=== PATIENT | female | born 1950 | race Caucasian/White ===

== ENCOUNTER → 2018-07-03 | Outpatient (CLI) | payer MEDICARE ==
--- NOTE | 2018-07-03 15:00 | Diagnostic Imaging Report ---
Exam: Lumbar spine complete History: Low back pain Comparison: None. Findings: There are 5 nonrib-bearing lumbar-type vertebral bodies. No acute, displaced fracture or dislocation. No pars interarticularis defects on the oblique radiographs. Mild multilevel disc space narrowing. Bilateral facet arthropathy at L4-5 and L5-S1. Atherosclerotic vascular calcifications. Sacroiliac joints are intact. Impression: No acute osseous abnormalities. Mild degenerative disc disease and degenerative facet arthropathy of the lower lumbar spine as above. Signed by: Dr. Abhijit Whitfield M.D. on 07/03/2018 2:57 PM
== END ==
LOC: RAD 13:42
PROVIDERS: ATTEND Internal Medicine Cardiovascular Disease
DX: M54.5 Low back pain (principal); M54.42 Lumbago with sciatica, left side; M25.552 Pain in left hip; M25.551 Pain in right hip
CPT/HCPCS: 72110

== ENCOUNTER → 2018-07-09 | Outpatient (CLI) | payer OTHER ==
--- NOTE | 2018-07-09 16:11 | Diagnostic Imaging Report ---
TECHNIQUE: Magnetic resonance imaging of the RIGHT HIP and MRI of the LEFT HIP were performed WITHOUT injected contrast. HISTORY: Bilateral hip pain COMPARISON: None available. FINDINGS: Bone: The bone marrow signal is heterogeneous, compatible with red marrow conversion, no specific evidence of a focal bone marrow replacing abnormality. No osteonecrosis or acute fracture. RIGHT Femoroacetabular Joint: Acetabular labrum: Mild attenuation and contour irregularity of the anterosuperior labrum. Articular Cartilage: Low-grade erosion and fibrillation of the anterior weightbearing cartilage. LEFT Femoroacetabular Joint: Acetabular labrum: Minimal attenuation contour irregularity of the anterosuperior labrum. Articular Cartilage: Minimal erosion of the anterior weightbearing cartilage. Pubic symphysis: Moderate degenerative changes. Muscle and tendons: The visualized tendons appear intact. Soft tissues: A 4.4 cm cystic focus with probable central complexity (5 image 14). IMPRESSION: 1. Mild right and minimal left degenerative changes of the hips, including mild right and minimal left degenerative tearing of the acetabular lynette. 2. Moderate osteoarthrosis of the pubic symphysis. 3. Indeterminate 4.4 cm left adnexal cyst, recommend a transabdominal and transvaginal pelvic ultrasound for further characterization. Signed by: Dr. Tj Torres D.O., M.M.M. on 07/09/2018 4:08 PM
--- NOTE | 2018-07-09 18:47 | Diagnostic Imaging Report ---
EXAMINATION: MRI of the lumbar spine without contrast HISTORY: Low back pain COMPARISON: Lumbar spine x-ray dated dated 07/03/2018 TECHNIQUE: Sagittal T1, T2, STIR; axial T2 and proton density. FINDINGS: It is assumed that there are 5 lumbar vertebrae. Curvature/Alignment: Normal lordosis. Vertebrae: No evidence of recent fracture, infection, or neoplasm. Conus: Normal, terminating at L1-L2 Cauda equina: Unremarkable. Lower thoracic: Unremarkable. Paraspinal soft tissues: Partially visualized probable intramural uterine fibroids and indeterminate cyst in the left adnexal region. Degenerative changes: L1-L2: Unremarkable. L2-L3: Unremarkable. L3-L4: Mild facet arthrosis without canal or foraminal stenosis. L4-L5: Prominent facet arthroses with grade 1 anterolisthesis. Symmetric disc bulge, marginal endplate osteophytes mainly on the left side and ligamenta flava thickening. Moderate spinal canal and mild foraminal stenosis on the left. Mild degenerative facet synovitis. L5-S1: Prominent facet arthrosis minimally on the right side, with minimal bilateral facet joint effusion and bone marrow edema, likely related to degenerative synovitis. IMPRESSION: 1. Grade 1 degenerative spondylolisthesis at L4-5. 2. Moderate degenerative spinal canal and mild left foraminal stenosis at L4-5. 3. Facet arthrosis and degenerative synovitis at L4-5 and L5-S1 as detailed above. Signed by: Dr. Christal King M.D. on 07/09/2018 6:43 PM
== END ==
LOC: MRI 12:37
PROVIDERS: ATTEND Internal Medicine Cardiovascular Disease
DX: M54.5 Low back pain (principal); M54.42 Lumbago with sciatica, left side; M25.552 Pain in left hip; M25.551 Pain in right hip
CPT/HCPCS: 72148